=== PATIENT | female | born 1975 | race Caucasian/White ===

== ENCOUNTER 2016-05-21 09:51 | Emergency (ER) | payer OTHER ==
[2016-05-21 10:27] VITALS: BP 127/63
--- NOTE | 2016-05-21 11:18 | UC ---
[facility] HPI - HPI Summary HPI Summary: THREE DAYS OF LEFT SIDED FACIAL SWELLING AND DRAINING ABSCESS. HISTORY OF PREVIOUS DENTAL ABSCESSES. MILD FEVER. DENTAL PAIN. 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 Hx Last Menstrual Period: 05/14/16 Onset/Duration: Sudden Onset, Lasting Days, Still Present Severity: Moderate Aggravating: Chewing Related History: Discharge, Swelling - Allergies/Home Medications Allergies/Adverse Reactions: Allergies Allergy/AdvReac Type Severity Reaction Status Date / Time No Known Allergies Allergy Verified 10/07/15 21:03 Home Medications: Home Medications Biotin 1,000 mcg PO 05/21/16 [History] PMH/Surg Hx/FS Hx/Imm Hx Previously Healthy: Yes Endocrine History Of: Denies: Diabetes, Thyroid Disease Cardiovascular History Of: Denies: Cardiac Disorders, Hypertension Respiratory History Of: Denies: COPD, Asthma GI/ History Of: Denies: Ulcer - Surgical History Surgical History: Yes Surgery Procedure, Year, and Place: Back surgery - Family History Known Family History: Negative: Cardiac Disease, Hypertension, Diabetes - Social History Occupation: Unemployed Lives: With Family Alcohol Use: Occasionally Substance Use Type: None Smoking Status (MU): Light Every Day Tobacco Smoker Type: Cigarettes, eCigarettes Amount Used/How Often: 1 pack every 3 days Have You Smoked in the Last Year: Yes Household Exposure Type: Cigarettes Cessation Counseling: Patient Advised to Stop - Immunization History Most Recent Influenza Vaccination: 12/14 Review of Systems Constitutional: Negative Skin: Negative Eyes: Negative ENT: Dental Pain Respiratory: Negative Cardiovascular: Negative Gastrointestinal: Negative Genitourinary: Negative Motor: Negative Neurovascular: Negative Musculoskeletal: Negative Neurological: Negative Psychological: Negative All Other Systems Reviewed And Are Negative: Yes Physical Exam Triage Information Reviewed: Yes Appearance: Well-Appearing, Well-Nourished, Pain Distress - MILD Vital Signs: Initial Vital Signs Temp 99.1 F 05/21/16 10:17 Pulse 94 05/21/16 10:17 Resp 18 05/21/16 10:17 BP 127/63 05/21/16 10:17 Pulse Ox 99 05/21/16 10:17 Vital Signs Reviewed: Yes Eye Exam: Normal ENT Exam: Normal ENT: Positive: Normal ENT inspection, Hearing grossly normal, Pharynx normal, TMs normal Dental: Positive: Percussion Tenderness @ - 12,13, Gross Decay/Caries @, Abscess @ - 12, 13, Other: - LEFT SIDED MAXILLARY FACIAL SWELLING Neck exam: Normal Neck: Positive: Supple, Nontender, No Lymphadenopathy Respiratory Exam: Normal Respiratory: Positive: Chest non-tender, Lungs clear, Normal breath sounds, No respiratory distress, No accessory muscle use Cardiovascular Exam: Normal Cardiovascular: Positive: RRR, No Murmur, Pulses Normal Abdominal Exam: Normal Abdomen Description: Positive: Nontender, No Organomegaly Musculoskeletal Exam: Normal Musculoskeletal: Positive: Strength Intact, ROM Intact Neurological Exam: Normal Psychological Exam: Normal Psychological: Positive: Normal Response To Family Skin Exam: Normal Dental Complaint Course/Dx - Differential Dx/Diagnosis Differential Diagnosis/Dx: Dental Abscess, Dental Caries, Peridontic Disease, Peritonsillar Abcess, Tonsillitis Provider Diagnoses: DENTAL ABSCESS GINGIVAL ASPECT OF #12 #13 Discharge - Discharge Plan Condition: Stable Disposition: HOME Prescriptions: Amoxicillin/Clavulanate TAB* [Augmentin TAB 875*] 875 mg PO BID #20 tab HYDROcodone/ACETAMIN 5-325 MG* [[place] 5-325 TAB*] 1 tab PO Q8H PRN #9 tab MDD THREE TABS PRN Reason: Pain Patient Education Materials: Dental Abscess (ED) Referrals: Zohaib Plunkett MD [Primary Care Provider] - Images Dental: 1 - DENTAL ABSCESS
== END 2016-05-21 11:17 | disposition home or self-care (01) ==
LOC: UCEAST 09:51
DX: K04.7 Periapical abscess without sinus (principal); F17.210 Nicotine dependence, cigarettes, uncomplicated
CPT/HCPCS: 87070; 87205; 99212; G0463

== ENCOUNTER 2018-02-17 16:37 | Emergency (ER) | payer OTHER ==
[2018-02-17 17:00] VITALS: BP 133/52
--- NOTE | 2018-02-17 17:10 | UC ---
Dental HPI - HPI Summary HPI Summary: 43 yo female presents with right lower jaw pain and swelling that began last night. She tells me that she knows she has a two bad teeth in this area, but is very afraid of the dentist and, thus, does not go. She has had abscesses here in the past, but says that they have always come to a "head" and she is able to pop them. This time she does not see a head and the pain and swelling have increased quickly since last night. She is able to eat soft foods and drink. She is able to open her mouth/jaw. Denies fever, chills, difficulty breathing, or SOB. She has been taking ibuprofen for her discomfort and icing the area with good relief of pain. - History of Current Complaint Chief Complaint: UCDentalProblem Stated Complaint: DENTAL Time Seen by Provider: 02/17/18 17:10 Hx Obtained From: Patient Hx Last Menstrual Period: [id number] Severity: Severe Pain Intensity: 8 Pain Scale Used: 0-10 Numeric - Allergies/Home Medications Allergies/Adverse Reactions: Allergies Allergy/AdvReac Type Severity Reaction Status Date / Time No Known Allergies Allergy Verified 02/17/18 17:01 Home Medications: Home Medications Ascorbic Acid [Vitamin C] 1,000 mg PO DAILY 02/17/18 [History Confirmed 02/17/18 ] Vitamin D3 1,000 units PO DAILY 02/17/18 [History Confirmed 02/17/18] PMH/Surg Hx/FS Hx/Imm Hx - Additional Past Medical History Additional PMH: None - Surgical History Surgical History: Yes Surgery Procedure, Year, and Place: Back surgery - Family History Known Family History: Negative: Cardiac Disease, Hypertension, Diabetes - Social History Lives: With Family Alcohol Use: Rare Substance Use Type: None Smoking Status (MU): Light Every Day Tobacco Smoker Type: Cigarettes, eCigarettes Amount Used/How Often: 1 pack every 3 days Have You Smoked in the Last Year: Yes Household Exposure Type: Cigarettes - Immunization History Most Recent Influenza Vaccination: 12/14 Review of Systems All Other Systems Reviewed And Are Negative: Yes Constitutional: Positive: Negative Skin: Positive: Negative ENT: Positive: Dental Pain Respiratory: Positive: Negative Cardiovascular: Positive: Negative Neurovascular: Positive: Negative Neurological: Positive: Negative Psychological: Positive: Negative Physical Exam - Summary Physical Exam Summary: GENERAL: NAD. WDWN. No pain distress. SKIN: RIGHT lower cheek with moderate edema and TTP. No erythema or open wound. NECK: Supple. Nontender. No lymphadenopathy. CHEST: No accessory muscle use. Breathing comfortably and in no distress. CV: Pulses intact. Cap refill <2seconds NEURO: Alert. PSYCH: Age appropriate behavior. Triage Information Reviewed: Yes Vital Signs: Initial Vital Signs Temp 98.3 F 02/17/18 16:54 Pulse 86 02/17/18 16:54 Resp 16 02/17/18 16:54 BP 133/52 02/17/18 16:54 Pulse Ox 100 02/17/18 16:54 Vital Signs Reviewed: Yes Dental: Positive: Percussion Tenderness @ - Tooth #30 and #31, Gross Decay/ Caries @ - Throughout, Dental Fracture @ - Tooth #30 and #31, Abscess @ - Tooth #30 and #31. Negative: Cellulitis @, Cervical Lymphadenopathy, Bleeding Dental Complaint Course/Dx - Course Course Of Treatment: Tooth #30 and #31 abscess. Discussed with pt the option of a dental nerve block and/or lancing the abscess in the clinic this evening, but pt declined due to a fear of needles. She was offered pain medication, but declined as nothing she has taken in the past relieves her pain. Will start her with Augmentin and have her continue icing the area and taking ibuprofen. - Differential Dx/Diagnosis Provider Diagnoses: Tooth #30 and #31 dental abscess Discharge - Sign-Out/Discharge Documenting (check all that apply): Patient Departure All imaging exams completed and their final reports reviewed: No Studies - Discharge Plan Condition: Stable Disposition: HOME Prescriptions: Amoxicillin/Clavulanate TAB* [Augmentin TAB 875*] 875 mg PO BID #14 tab Fluconazole 150 MG (NF) [Diflucan 150 mg (NF)] 150 mg PO ONCE #1 tab Patient Education Materials: Dental Abscess (ED) Referrals: Walt Beebe DO [Primary Care Provider] - Additional Instructions: If you develop a fever, shortness of breath, chest pain, new or worsening symptoms - please call your PCP or go to the ED. 1) Continue to apply ice to your cheek to reduce pain and swelling - Billing Disposition and Condition Condition: STABLE Disposition: Home
[2018-02-17] MEDS ORDERED: Amoxicillin/Clavulanate TAB* 875 MG PO ONE (17:29)
== END 2018-02-17 17:40 | disposition home or self-care (01) ==
LOC: UCEAST 16:37
DX: K04.7 Periapical abscess without sinus (principal); F17.210 Nicotine dependence, cigarettes, uncomplicated
CPT/HCPCS: 99212; A9270-GY; G0463